=== PATIENT | male | born 1995 | race Caucasian/White ===

== ENCOUNTER 2018-08-04 18:08 | Emergency (ER) | payer OTHER ==
[2018-08-04] MEDS: ACETAMINOPHEN 325 MG TAB PO (20:12)
== END 2018-08-04 20:48 | disposition home or self-care (01) ==
LOC: FTE 20:48
DX: S00.81XA Abrasion of other part of head, initial encounter (principal); R51 Headache; V18.4XXA Pedal cycle driver injured in noncollision transport accident in traffic accident, initial encounter
CPT/HCPCS: 70450; 99284-25